=== PATIENT | female | born 1940 | race Caucasian/White ===

== ENCOUNTER 2025-06-10 14:27 | Outpatient (CLI) | payer MEDICARE, SELFPAY ==
--- NOTE | 2025-06-10 09:30 | DI.RAD_ITS ---
Exam(s) XR PELVIS AP EXAM: XR PELVIS AP CLINICAL HISTORY: THR Planning. TECHNIQUE: 2D digital imaging was performed. COMPARISON: CR XR HIP MIN 2V RT from 01/18/2025 (outside images [facility]) FINDINGS: AP view both hips There are no fractures. There are advanced osteoarthritic degenerative changes in both hips [id number] narrowing and marginal osteophytes. The appearance of the right hip exhibits minimal if any significant change when compared to January 2025 outside images. There are no prior images of the left hip. Pubic rami are intact. There are no significant osseous lesions. 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 DATA REPOSITORY: RADIATION DOSE DELIVERED:
== END 2025-06-10 14:28 | disposition home or self-care (01) ==
LOC: DIORS 14:29
PROVIDERS: PCP Specialist/Technologist Athletic Trainer; Visit Provider Student in an Organized Health Care Education/Training Program
DX: M16.11 Unilateral primary osteoarthritis, right hip (principal)
CPT/HCPCS: 99204; 72170